=== PATIENT | male | born 1970 | race Caucasian/White ===

== ENCOUNTER 2021-11-27 19:50 | Emergency (ER) | payer SELFPAY ==
[~2021-11-27] VITALS: Ht 177.8 cm; Wt 96.3 kg
[2021-11-27] MEDS ORDERED: ONDANSETRON PF 4 MG/2 ML VIAL. IVP ONE (20:15)
[2021-11-27] MEDS ORDERED: IV NORMAL SALINE 1,000ML 1,000 ML IV ONE (20:15)
--- NOTE | 2021-11-27 20:17 | PHYS DOC ---
General Adult EDM: Chief Complaint: CHEST PAIN HPI: HPI: Is a 50-year-old male who presents to the emergency department via EMS for chest pain. Patient is reporting left upper chest pain that he describes as a pressure with intermittent sharp pains that he rates 4 out of 10. Pain does not radiate. No alleviating or aggravating factors. He also reports nausea, vomiting, diaphoresis and shortness of breath. Patient received 324 mg of aspirin and a nitro tablet by EMS. He reports that the nitro tablet did not relieve his chest pain. Patient denies any cough, fever, abdominal pain. He does report alcohol use and states that he drank a half a pint of [place], 1 beer and 1 seltzer prior to arrival. Patient has a history of hypertension, hyperlipidemia, is a current smoker and has a family history of heart disease. (GREGORIA ARORA APRN) Review of Systems: Review of Systems: Constitutional: see HPI Respiratory: see HPI Cardiovascular: see HPI GI: see HPI (GREGORIA ARORA APRN) Current Medications: Current Meds: Current Medications Medications (Trade) Dose Ordered Sig/Jeanette Start Time Stop Time Status Last Admin Dose Admin Ondansetron HCl (Zofran) 4 mg 1X ONCE 11/27/21 20:15 11/27/21 20:16 UNV Sodium Chloride 1,000 ml @ 1,000 mls/hr 1X ONCE 11/27/21 20:15 11/27/21 21:14 UNV (GREGORIA ARORA APRN) Physical Exam: PE: Constitutional: Well developed, well nourished, no acute distress, non-toxic appearance. [] HENT: Normocephalic, atraumatic, bilateral external ears normal, oropharynx moist, no oral exudates, nose normal. [] Eyes: PERRL, EOMI, conjunctiva normal, no discharge. [] Neck: Normal range of motion, no tenderness, supple, no stridor. [] Cardiovascular:Heart rate regular rhythm, no murmur [] Lungs & Thorax: Bilateral breath sounds clear to auscultation [] Abdomen: Bowel sounds normal, soft, no tenderness, no masses, no pulsatile masses. [] Skin: Warm, dry, no erythema, no rash. [] Back: No tenderness, normal range of motion Extremities: No tenderness, no cyanosis, no clubbing, ROM intact, no edema. [] Neurologic: Alert and oriented X 3, normal motor function, normal sensory function, no focal deficits noted. [] Psychologic: Affect normal, judgement normal, mood normal. [] (GREGORIA ARORA APRN) Current Patient Data: Labs: Laboratory Tests Test 11/27/21 20:14 White Blood Count 9.2 x10^3/uL Red Blood Count 4.49 x10^6/uL Hemoglobin 14.2 g/dL Hematocrit 41.3 % Mean Corpuscular Volume 92 fL Mean Corpuscular Hemoglobin 32 pg Mean Corpuscular Hemoglobin Concent 34 g/dL Red Cell Distribution Width 13.6 % Platelet Count 242 x10^3/uL Neutrophils (%) (Auto) 55 % Lymphocytes (%) (Auto) 33 % Monocytes (%) (Auto) 10 % Eosinophils (%) (Auto) 1 % Basophils (%) (Auto) 1 % Neutrophils # (Auto) 5.1 x10^3uL Lymphocytes # (Auto) 3.0 x10^3/uL Monocytes # (Auto) 0.9 x10^3/uL Eosinophils # (Auto) 0.1 x10^3/uL Basophils # (Auto) 0.1 x10^3/uL Sodium Level 138 mmol/L Potassium Level 3.0 mmol/L Chloride Level 101 mmol/L Carbon Dioxide Level 26 mmol/L Anion Gap 11 Blood Urea Nitrogen 11 mg/dL Creatinine 0.9 mg/dL Estimated GFR (Cockcroft-Gault) 89.0 BUN/Creatinine Ratio 12 Glucose Level 137 mg/dL Calcium Level 8.5 mg/dL Total Bilirubin 0.7 mg/dL Aspartate Amino Transf (AST/SGOT) 22 U/L Alanine Aminotransferase (ALT/SGPT) 52 U/L Alkaline Phosphatase 96 U/L Troponin I High Sensitivity 6 ng/L Total Protein 6.3 g/dL Albumin 3.6 g/dL Albumin/Globulin Ratio 1.3 Lipase 139 U/L Current Medications Medications (Trade) Dose Ordered Sig/Jeanette Route PRN Reason Start Time Stop Time Status Last Admin Dose Admin Sodium Chloride 1,000 ml @ 1,000 mls/hr 1X ONCE IV 11/27/21 20:15 11/27/21 20:20 DC Ondansetron HCl (Zofran) 4 mg 1X ONCE IVP 11/27/21 20:15 11/27/21 20:37 DC 11/27/21 20:39 Lactated Ringer's 1,000 ml @ 1,000 mls/hr 1X ONCE IV 11/27/21 20:30 11/27/21 21:29 11/27/21 20:39 Potassium Chloride (Klor-Con) 50 meq 1X ONCE PO 11/27/21 21:15 11/27/21 21:16 UNV (GREGORIA ARORA ORDER BOOKER) EKG: EKG: EKG performed by ER staff at 1958 shows sinus rhythm with a rate of 90, QTc is 463, no STEMI read by Dr. Denise. [] (GREGORIA ARORA ORDER BOOKER) Radiology/Procedures: Radiology/Procedures: [] COMPARISON: None. TECHNIQUE: Multiple contiguous axial images were obtained throughout the chest, abdomen, and pelvis without the use of IV contrast. Axial images were reformatted into coronal and sagittal planes. One or more of the following dose reduction techniques were utilized: Automated exposure control (AEC), Adjustment of mA and/or kV according to patient size, Use of iterative reconstruction technique such as ASiR, CT scan done according to ALARA and image gently/image wisely. FINDINGS: Chest Findings: The thyroid is symmetric. There is no axillary, mediastinal, or hilar adenopathy, although evaluation of the [place] is limited without IV contrast. The thoracic aorta diameter is normal. The cardiac size is normal. No coronary artery calcifications. There is no pericardial effusion. The central airways are patent. Lungs are clear. Bilateral paraseptal emphysema with left apical bullous disease. No pleural abnormality. Abdomen findings: Evaluation of solid abdominal viscera is limited without the use of IV contrast. Hepatic steatosis. The gallbladder, spleen, pancreas, and adrenal glands are unremarkable. Left renal upper pole 4 cm lesion. There is no significant mesenteric or retroperitoneal adenopathy identified, though evaluation is limited without intravenous contrast. There is no evidence of free intraperitoneal fluid or pneumoperitoneum. Few scattered colonic diverticula. Mild aortoiliac atherosclerotic disease. Pelvis findings: The bladder and distal ureters are unremarkable. There is no significant pelvic ascites. No significant iliac or inguinal adenopathy is identified. No acute osseous abnormality. IMPRESSION: 1. No acute findings. 2. Bilateral paraseptal emphysema with left apical bullous disease. 3. Left renal 4 cm lesion is poorly characterized by noncontrast CT. This could be further evaluated with a nonemergent renal ultrasound. 4. Hepatic steatosis. 5. Few scattered colonic diverticula. Electronically signed by: Namita Rincon MD (11/27/2021 8:43 PM) [facility] DICTATED AND SIGNED BY: NAMITA RINCON MD DATE: 11/27/212030 CC: ARTHUR DENISE MD; GREGORIA ARORA APRN; PCP,NO ~ PROCEDURE: PORTABLE CHEST 1V EXAM: CHEST 1 VIEW History: Chest pain COMPARISON: None available. TECHNIQUE: Single portable radiograph of the chest FINDINGS: The cardiac silhouette is unremarkable. There is moderate size luce ncy identified in the medial aspect of the left upper could be a emphysematous bulla or loculated pneumothorax. Mild bibasilar lung airspace opacities. IMPRESSION: 1. Mild bibasilar lung airspace opacities likely atelectasis or infiltrates. 2. Moderate size lucency identified in the medial aspect of the left upper lobe could be a emphysematous bulla or loculated pneumothorax. Electronically signed by: Eddie Freedman MD (11/27/2021 8:18 PM) [id number] DICTATED AND SIGNED BY: EDDIE FREEDMAN MD DATE: 11/27/212016 CC: EMERGENCY,DEPARTMENT; GREGORIA ARORA APRN; PCP,NO ~ (GREGORIA ARORA APRN) Heart Score: C/O Chest Pain: Yes HEART Score for Chest Pain: HEART Score for Chest Pain Response (Comments) Value History Moderately Suspicious 1 ECG Normal 0 Age >45 - < 65 1 Risk Factors >3 Risk Factors or Hx CAD 2 Troponin < Normal Limit 0 Total 4 Risk Factors: Risk Factors: DM, Current or recent (<one month) smoker, HTN, HLP, family history of CAD, obesity. Risk Scores: Score 0 - 3: 2.5% MACE over next 6 weeks - Discharge Home Score 4 - 6: 20.3% MACE over next 6 weeks - Admit for Clinical Observation Score 7 - 10: 72.7% MACE over next 6 weeks - Early Invasive Strategies (GREGORIA ARORA APRN) Course & Med Decision Making: Course & Med Decision Making Pertinent Labs and Imaging studies reviewed. (See chart for details) Patient presents to the emergency department for left upper chest pain that started just prior to arrival. Chest pain is associated with nausea, vomiting, diaphoresis and shortness of breath. He does report a history of hypertension, hyperlipidemia, current smoker and family history of heart disease. He does have alcohol on board and reports drinking a large amount of alcohol prior to arrival. Work-up in the ER work including troponin and lipase, urinalysis. Patient's will have CT imaging of chest abdomen and pelvis. Patient CBC was unremarkable. Her potassium was 3 and it was replaced with supplementation. Negative troponin, negative lipase. Patient's CT imaging of her chest abdomen and pelvis shows emphysema changes in the lungs with only palpable's disease and fatty liver with no other acute findings. Following treatment in the emergency department patient reports improvement in his symptoms. Admission was offered for cardiac evaluation and serial enzymes and patient refused admission. Patient will be discharged home with nausea medication. He is advised to discontinue alcohol use and cigarette use. He is advised to follow-up with his primary care provider regarding his CT findings. I discussed with patient all findings and diagnostic testing as well as the need to follow-up with PCP for further evaluation and treatment or return to the ER if any new or worsening symptoms. Strict return precautions were also discussed at length. Patient voiced understanding and agreement with the plan. Patient is hemodynamically stable at the time of disposition. (GREGORIA ARORA APRN) Course & Med Decision Making Did not see or evaluate patient. Did not discuss patient with B[facility]MAN. Generally agree with BANKMAN's work-up and disposition per note. (ARTHUR DENISE MD) Dragon Disclaimer: Dragon Disclaimer: This electronic medical record was generated, in whole or in part, using a voice recognition dictation system. (GREGORIA ARORA APRN) Departure Departure: Impression: Primary Impression: Atypical chest pain Additional Impression: Nausea & vomiting Qualified Codes: R11.2 - Nausea with vomiting, unspecified Disposition: HOME / SELF CARE / HOMELESS Condition: GOOD Referrals: PCP,NO (PCP) Patient Instructions: Chest Pain (Nonspecific), Nausea and Vomiting, [id number] Additional Instructions: You are seen in the emergency department today for chest pain. You were noted to have a low potassium which was placed in the emergency department. Please make sure that you are eating potassium rich foods like green leafy vegetables and bananas. Your cardiac enzymes were not elevated. At this time, does not appear that you are experiencing acute coronary syndrome. Please follow-up with your primary care provider tomorrow for reevaluation. Discontinue alcohol use. Please discontinue your cigarette use as you do have emphysema, changes in your lungs. You are being discharged with nausea medication please take this as needed. Return to the emergency department if you develop abdominal pain, chest pain, shortness of breath, intractable nausea vomiting, high fevers refractory to treatment. Scripts Ondansetron (ONDANSETRON ODT) 4 Mg Tab.rapdis 1 TAB PO PRN Q6-8HRS for nausea for 7 Days, #28 TAB 0 Refills Prov: GREGORIA ARORA APRN 11/27/21 GREGORIA ARORA APRN November 27, 2021 20:17 ARTHUR DENISE MD November 27, 2021 22:12
--- NOTE | 2021-11-27 20:21 | RAD ---
EXAM: CHEST 1 VIEW History: Chest pain COMPARISON: None available. TECHNIQUE: Single portable radiograph of the chest FINDINGS: The cardiac silhouette is unremarkable. There is moderate size lucency identified in the m edial aspect of the left upper could be a emphysematous bulla or loculated pneumothorax. Mild bibasil ar lung airspace opacities. IMPRESSION: 1. Mild bibasilar lung airspace opacities likely atelectasis or infiltrates. 2. Moderate size lucency identified in the medial aspect of the left upper lobe could be a emphysema tous bulla or loculated pneumothorax. Electronically signed by: Eddie Santiago MD (11/27/2021 8:18 PM) [id number]
[2021-11-27] MEDS ORDERED: IV RINGERS SOLUTION,LACTATED 1,000 ML IV ONE (20:30)
[2021-11-27 20:37] LABS: BASO # 0.1 x10^3/uL (0.0-0.2); BASO % 1 % (0-3); EOS # 0.1 x10^3/uL (0.0-0.7); EOS % 1 % (0-3); HEMATOCRIT 41.3 % (39.0-53.0); HEMOGLOBIN 14.2 g/dL (13.0-17.5); LYMPH % 33 % (24-48); MEAN CORPUSCULAR HEMOGLOBIN 32 pg (25-35); MEAN CORPUSCULAR HGB CONC 34 g/dL (31-37); MEAN CORPUSCULAR VOLUME 92 fL (79-100); MONO # 0.9 x10^3/uL (0.0-1.1); MONO % 10 % (0-9); NEUT # 5.1 x10^3uL (1.8-7.7); NEUT % 55 % (31-73); PLATELET COUNT 242 x10^3/uL (140-400); RED BLOOD COUNT 4.49 x10^6/uL (4.30-5.70); RED CELL DISTRIBUTION WIDTH 13.6 % (11.5-14.5); WHITE BLOOD COUNT 9.2 x10^3/uL (4.0-11.0)
--- NOTE | 2021-11-27 20:45 | RAD ---
CT CHEST_ABDOMEN_ AND PELVIS WITHOUT CONTRAST INDICATION: chest pain, n/v, back pain COMPARISON: None. TECHNIQUE: Multiple contiguous axial images were obtained throughout the chest, abdomen, and pelvis without the use of IV contrast. Axial images were reformatted into coronal and sagittal planes. One or more of th e following dose reduction techniques were utilized: Automated exposure control (AEC), Adjustment of mA and/or kV according to patient size, Use of iterative reconstruction technique such as ASiR, CT sc an done according to ALARA and image gently/image wisely. FINDINGS: Chest Findings: The thyroid is symmetric. There is no axillary, mediastinal, or hilar adenopathy, although evaluatio n of the [place] is limited without IV contrast. The thoracic aorta diameter is normal. The cardiac size is normal. No coronary artery calcifications. There is no pericardial effusion. The central airways are patent. Lungs are clear. Bilateral paraseptal emphysema with left apical bull ous disease. No pleural abnormality. Abdomen findings: Evaluation of solid abdominal viscera is limited without the use of IV contrast. Hepatic steatosis. T he gallbladder, spleen, pancreas, and adrenal glands are unremarkable. Left renal upper pole 4 cm le maye. There is no significant mesenteric or retroperitoneal adenopathy identified, though evaluation is limited without intravenous contrast. There is no evidence of free intraperitoneal fluid or pneu moperitoneum. Few scattered colonic diverticula. Mild aortoiliac atherosclerotic disease. Pelvis findings: The bladder and distal ureters are unremarkable. There is no significant pelvic ascites. No signifi cant iliac or inguinal adenopathy is identified. No acute osseous abnormality. IMPRESSION: 1. No acute findings. 2. Bilateral paraseptal emphysema with left apical bullous disease. 3. Left renal 4 cm lesion is poorly characterized by noncontrast CT. This could be further evaluated with a nonemergent renal ultrasound. 4. Hepatic steatosis. 5. Few scattered colonic diverticula. Electronically signed by: Miguelito Rincon MD (11/27/2021 8:43 PM) [facility]
[2021-11-27 20:56] LABS: ALBUMIN 3.6 g/dL (3.4-5.0); ALBUMIN/GLOBULIN RATIO 1.3 (1.0-1.7); CALCIUM 8.5 mg/dL (8.5-10.1); CREATININE 0.9 mg/dL (0.7-1.3); TOTAL BILIRUBIN 0.7 mg/dL (0.2-1.0); TOTAL PROTEIN 6.3 g/dL (6.4-8.2)
[2021-11-27] MEDS ORDERED: ONDA4TAB12 PO (21:14)
[2021-11-27] MEDS ORDERED: POTASSIUM CHLORIDE 10 MEQ TABLET.ER. PO ONE (21:15)
[2021-11-27 21:23] VITALS: BP 115/63
== END 2021-11-27 21:24 | disposition home or self-care (01) ==
LOC: ER 19:50
DX: R07.89 Other chest pain (principal); R11.2 Nausea with vomiting, unspecified; R06.02 Shortness of breath; I10 Essential (primary) hypertension; E78.5 Hyperlipidemia, unspecified; F17.200 Nicotine dependence, unspecified, uncomplicated
CPT/HCPCS: 71045; 71250; 74176; 80053; 83690; 84484; 85025; 96361; 96374; 99285; J2405; J7120